=== PATIENT | female | born 1995 | race Caucasian/White ===

== ENCOUNTER 2024-03-16 08:52 | Emergency (ER) | payer MEDICAID, SELFPAY ==
[2024-03-16 08:53] VITALS: BMI 37.0
[2024-03-16 09:12] VITALS: BP 107/79; PULSE 123; RESP 20; TEMP 38.3; O2SAT 95
--- NOTE | 2024-03-16 09:32 | XR_ITS ---
Examination: AP lateral chest 2 views TECHNIQUE: Upright AP lateral chest 2 views Exam date and time: March 16, 2024 0948 hours Comparison February 09, 2022 INDICATIONS: Flulike symptoms today. FINDINGS: Normal heart size Lungs are clear. The osseous structures are intact IMPRESSION: No active disease
--- NOTE | 2024-03-16 09:44 | EDNOTE_ITS ---
Upper Respiratory Inf. RME/HPI General Chief Complaint: Flu Like Symptoms Stated Complaint: +COVID GENERAL BODY ACHES Time Seen by Provider: 03/16/24 09:02 Source: patient Arrival date/time: 03/16/24 08:52 This is a 28-year-old female who presents to the emergency department with complaints of general body aches, cough nausea and vomiting consistent with viral syndrome. Reports coworkers have similar symptoms. Denies chest pain, dyspnea. Mode of arrival: ambulatory Limitations: no limitations Related Data Previous Rx's ?Medication ?Instructions ?Recorded ondansetron 4 mg disintegrating 4 mg PO Q6H PRN nausea and 07/21/23 tablet vomiting 7 days #28 tabs estradiol 1 mg tablet 1 mg PO QDAY 90 days #90 tabs 07/22/23 albuterol sulfate 90 mcg/actuation 2 puff inhalation Q6H PRN 03/16/24 aerosol inhaler (Ventolin HFA) shortness of breath or wheezing #8.5 grams promethazine-DM 6.25 mg-15 mg/5 mL 5 ml PO Q6H PRN cough #118 mL 03/16/24 oral syrup Allergies Allergy/AdvReac Type Severity Reaction Status Date / Time No Known Allergies Allergy Verified 03/16/24 08:56 Review of Systems Review of Systems Systems Reviewed: All systems reviewed, normal except as documented Narrative Review of Systems: Gen:+ fever, no chills, no weight loss EYES: No discharge, no visual changes, no pain HEENT: No ear pain, ++ congestion, no sore throat PULM: No shortness of breath, + cough, no congestion CV: No chest pain, no dyspnea on exertion, no palpitations GI: No nausea, ++ vomiting, no diarrhea, no pain, no constipation : No frequency, no urgency,? no dysuria Musc/skel: No joint pain, no back pain Skin: No rash? ED Exam Narrative Physical exam: General: Sittiing in Exam table in no acute distress, answering questions appropriately HENT: normocephalic, atraumatic, EOMI, PERRLA, moist mucous membranes Chest: chest wall is nontender Cardiac: regular rate and rhythm, normal S1 and S2, no murmurs, rubs, or gallops, capillary refill ?2 seconds Pulmonary: clear to auscultation bilaterally, no wheezing, crackles, or rhonchi Abdominal: active bowel sounds, soft, nontender, nondistended Neuro: A&OX3, CN II-XII intact, sensation grossly intact bilaterally in UE and LE. Skin: no rashes, no ecchymosis Ext: no lower extremity edema General Limitations: Present no limitations General appearance: Present alert and in no apparent distress Head Head exam: Present atraumatic Eye Eye exam: Present normal appearance, PERRL and EOMI ENT ENT exam: Present normal exam, normal oropharynx and mucous membranes moist Neck Neck exam: Present normal inspection, full ROM and trachea midline Chest Chest inspection: Present normal inspection and symmetric chest wall rise Respiratory Respiratory exam: Present normal lung sounds bilaterally Cardiovascular Cardiovascular exam: Present regular rate, normal rhythm and normal heart sounds Abdominal Exam Abdominal exam: Present soft and normal bowel sounds Extremities Exam Extremities exam: Present normal inspection and full ROM Back Exam Back exam: Present normal inspection and full ROM Neurological Exam Neurological exam: Present alert, oriented X3 and CN II-XII intact Psychiatric Psychiatric exam: Present normal affect and normal mood Skin Skin exam: Present warm, dry, intact and normal color Course Quality Measures none Orders Category Date Time Status Bedside COVID-19 Antigen Test NOW Care 03/16/24 09:32 Completed Bedside Influenza A&B Antigen Test NOW Care 03/16/24 09:33 Completed XR chest 2V Stat Exams 03/16/24 09:32 Completed Strep A Rapid Stat Lab 03/16/24 09:31 Completed Ibuprofen Tab [Motrin Tab] Med 03/16/24 09:32 Discontinued 800 mg PO X1 ONE Ondansetron Odt [Zofran Odt] Med 03/16/24 09:33 Discontinued 4 mg PO X1 ONE Vital Signs Vital signs: Vital Signs Temperature 101.0 F H 03/16/24 09:12 Pulse Rate 123 H 03/16/24 09:12 Respiratory Rate 20 03/16/24 09:12 Blood Pressure 107/79 03/16/24 09:12 Pulse Oximetry (%) 95 03/16/24 09:12 Oxygen Delivery Method Room Air 03/16/24 09:12 Upper Respiratory Infection Patient data External records reviewed:: [facility] previous records Clinical information provided by:: patient Social determinants that could affect healthcare access:: none Patient has the following chronic illnesses:: no How is presenting disease/condition affected by chronic disease/condition?: no chronic disease Evaluation data The following diagnostics were reviewed and interpreted by me:: lab results and radiology exam(s) Lab and/or radiology exams considered but not ordered:: No Interpretation Summary: bedside COVID and flu-negative Strep pharyngitis rapid test-negative Chest x-ray Examination: AP lateral chest 2 views TECHNIQUE: Upright AP lateral chest 2 views Exam date and time: March 16, 2024 0948 hours Comparison February 09, 2022 INDICATIONS: Flulike symptoms today. FINDINGS: Normal heart size Lungs are clear. The osseous structures are intact IMPRESSION: No active disease Medications / Prescriptions Medications or Prescriptions considered but not ordered:: antibiotics yes however viral syndrome Medication administrations:: Medication Administration History Discontinued Medications Ibuprofen (Ibuprofen Tab 400 Mg Tablet) 800 mg PO X1 ONE Stop: 03/16/24 09:33 Last Admin: 03/16/24 10:01 Dose: 800 mg Documented By: GEOVANY Ondansetron HCl (Ondansetron Odt 4 Mg Tabrap) 4 mg PO X1 ONE; Protocol Stop: 03/16/24 09:34 Last Admin: 03/16/24 10:02 Dose: 4 mg Documented By: GEOVANY all medications administered and effective Consultations Consultation(s) initiated? (list below): No Diagnosis Upper Respiratory Differential Diagnosis: upper respiratory infection, sinusitis, viral infection, bronchitis, influenza and pharyngitis Most likely diagnosis given after review of the tests above:: viral syndrome Admission Indicated Admission indicated?: not indicated Admission Request Was there a request for admission?: No Disposition Plan Disposition Plan: Discharge Discharge Attestation Discharge Attestation: The patient and all family members were given an opportunity to ask questions and understood the discharge instructions. Discharge instructions specifically effects, indications for sooner follow up or return to the emergency department, and the expected course of current diagnosis. Patient condition: Stable Discharge Plan Plan Patient Disposition: HOME (Self Care) Patient condition on transfer: Stable Prescriptions/Referrals Prescriptions/Med Rec: New albuterol sulfate [Ventolin HFA] 90 mcg/actuation HFA aerosol inhaler 2 puff inhalation Q6H PRN (Reason: shortness of breath or wheezing) Qty: 8.5 0RF promethazine-DM 6.25-15 mg/5 mL syrup 5 ml PO Q6H PRN (Reason: cough) Qty: 118 0RF No Action ondansetron 4 mg tablet,disintegrating 4 mg PO Q6H PRN (Reason: nausea and vomiting) 7 Days Qty: 28 1RF estradiol 1 mg Tablet 1 mg PO QDAY 90 Days Qty: 90 4RF Referrals: Quang Leyva MD [Primary Care Provider] - In 1 week Problem List Clinical Impression: Influenza Patient/Caregiver Discharge Instructions Discharge Activity: activity as tolerated Education Materials: ED Influenza (Adult) Additional Instructions: Your rapid influenza test was positive. Start Tamiflu, antipyretics to pharmacy. - cough syrup and albuterol also sent to the pharmacy. - Please alternate between Tylenol and ibuprofen for body aches and fever control. Advised to increase hydration, warm tea and chicken rice soup can brewer helper for throat pain. Please follow-up with your clinic 3-day follow-up. If you develop any type of respiratory distress or change in condition please go immediately to nearest emergency department Print Language: Hebrew Stand Alone Forms: Lesa Award Info., Work/School Release, Patient Portal Info Letter CIRO/HECTOR Supervising Physician CIRO/HECTOR Supervising Physician: Dr Ko
[2024-03-16 10:01] VITALS: TEMP 38.3
[2024-03-16] MEDS: IBUPROFEN TAB 400 MG TABLET 800 MG PO (10:01)
[2024-03-16] MEDS: ONDANSETRON ODT 4 MG TABRAP PO (10:02)
[2024-03-16 11:46] VITALS: BP 130/66; PULSE 111; RESP 22; TEMP 37.7; O2SAT 97
[2024-03-16 11:51] LABS: Strep A Rapid Negative (Negative)
== END 2024-03-16 11:49 | disposition home or self-care (01) ==
PROVIDERS: Nurse Practitioner Primary Care; Emergency Provider Emergency Medicine; PCP Family Medicine
DX: J11.1 Influenza due to unidentified influenza virus with other respiratory manifestations (principal)
CPT/HCPCS: 71046; 87400; 87651; 87811; 99283; Q0162; A9270